=== PATIENT | male | born 1955 | race Caucasian/White ===

== ENCOUNTER → 2017-06-08 12:35 | Outpatient (CLI) | payer MEDICARE, SELFPAY ==
--- NOTE | 2017-06-08 12:37 | CT_ITS ---
STUDY: CTA OF THE BRAIN REASON FOR EXAM: Male, 61 years old. History of vertebral artery occlusion. RADIATION DOSAGE (If Supplied By Facility): CTDIvol = ( 27.85 ) mGy, DLP = ( 1548.04 ) mGycm TECHNIQUE: CT angiography was performed with a multi-detector CT scanner. Data acquisition was obtained from the skull base through the vertex following intravenous administration of 100 ml of Isovue-370. MIP images were reconstructed from the axial data set. Post-processing of the angiographic images was performed, with multiplanar reformation and 3D reconstruction. Individualized dose optimization techniques were used for this CT. COMPARISON: None. FINDINGS: Normal bilateral petrous carotid arteries. Normal right cavernous carotid artery with a normal supraclinoid bifurcation. Normal left cavernous carotid artery with a normal supraclinoid bifurcation. Normal right A1 segments of the anterior cerebral artery. Normal left A1 segments of the anterior cerebral artery. Normal intact anterior communicating artery (ACOM). Normal bilateral A2 segments of the anterior cerebral arteries. Normal right M1 and M2 segments of the middle cerebral arteries, with a normal M1 bifurcation. Normal left M1 and M2 segments of the middle cerebral arteries, with a normal M1 bifurcation. Normal right posterior communicating artery (PCOM). Normal left posterior communicating artery (PCOM). Normal bilateral vertebral arteries. Normal basilar artery with a normal basilar bifurcation. The visualized bilateral superior cerebellar (SCA) arteries are normal. Normal bilateral P1, P2 and visualized P3 segments of the posterior cerebral arteries. There is no demonstrated aneurysm of the saxman of [place]ter. There is no demonstrated abnormality of the visualized brain. Mucosal thickening of the posterior aspect of the right ethmoid sinus. CT/CTA Head W/WO Contrast IMPRESSION: Normal saxman of [place] without a demonstrated aneurysm or hemodynamically significant stenosis. Electronically Signed: Sony Perdomo MD at 13:37 EST Tel [phone], Service support ,
--- NOTE | 2017-06-08 12:37 | CT_ITS ---
STUDY: CTA NECK WITH CONTRAST REASON FOR EXAM: Male, 61 years old. History of vertebral artery occlusion. RADIATION DOSAGE (If Supplied By Facility): CTDIvol = ( 27 ) mGy, DLP = ( 1548.04 ) mGycm TECHNIQUE: CT angiography with multi-detector data acquisition was performed from the aortic arch to the skull base following intravenous administration of 100ml ml of Isovue 370 contrast. MIP images were reconstructed from the axial data set. Post-processing of the angiographic images was performed, with multiplanar reformation and 3D reconstruction. Individualized dose optimization techniques were used for this CT. COMPARISON: None. FINDINGS: AORTIC ARCH: There is atherosclerotic calcific plaque formation of the aortic arch and great vessels arising from the aortic arch, without a hemodynamically significant stenosis. There is a normal origin of the brachiocephalic, left common carotid, and left subclavian arteries. RIGHT CAROTID ARTERIES: Normal right common carotid artery (CCA). Focal calcified plaque in the midportion of the right common carotid artery. There is mild atherosclerotic plaque formation of the origin of the right internal carotid artery with less than 50% cross sectional diameter stenosis. Normal visualized cervical portion of the right internal carotid artery. Normal origin of the right external carotid artery (ECA). LEFT CAROTID ARTERIES: Normal left common carotid artery (CCA). Normal left common carotid bulb. Normal origin of the left internal carotid (ICA) artery without a hemodynamically significant stenosis. Normal visualized cervical portion of the left internal carotid artery. Normal origin of the left external carotid artery (ECA). VERTEBRAL ARTERIES: Normal bilateral vertebral arteries. CT/CTA Neck W/WO Contrast IMPRESSION: Minimal atherosclerotic plaque at the origin of the right internal carotid artery without significant stenosis. Electronically Signed: Sony Perdomo MD at 13:51 EST Tel [phone], Service support ,
== END ==
PROVIDERS: Family Provider Family Medicine; PCP Family Medicine; Visit Provider Psychiatry & Neurology Neurology
DX: I65.09 Occlusion and stenosis of unspecified vertebral artery (principal)
CPT/HCPCS: 70496; 70498; Q9967

== ENCOUNTER 2022-10-17 09:48 | Emergency (ER) | payer MEDICARE, SELFPAY ==
[2022-10-17 09:50] VITALS: BP 168/90; PULSE 96; RESP 24; TEMP 36.4; O2SAT 100; BMI 17.0
[2022-10-17 09:51] VITALS: O2SAT 100
--- NOTE | 2022-10-17 10:13 | EKG12_ITS ---
Test Reason : SOB/CP Blood Pressure : / mmHG Vent. Rate : 095 BPM Atrial Rate : 095 BPM P-R Int : 096 ms QRS Dur : 072 ms QT Int : 356 ms P-R-T Axes : 085 082 060 degrees QTc Int : 447 ms Sinus rhythm with short [place] Otherwise normal ECG Confirmed by RANDY LYLES, SUSAN ([id number]), video effects editor BRIANNA FLORES ([id number]) on 10/19/2022 7:47:25 AM Referred By: MARY/CHANTEL Confirmed By:TARAH PADILLA MD
--- NOTE | 2022-10-17 10:14 | ED.VIS.DYS ---
HPI History of Present Illness Chief Complaint: Shortness of Breath Detail of Chief Complaint: Shortness of breath Informant: patient and family Narrative Narrative: Patient presents with shortness of breath that he has had since September. He had several visits to [facility]. Patient was admitted last week for the same complaint and sounds like from what he is describing had a CAT scan with IV contrast of his chest as well as an echocardiogram. Patient apparently was told he has emphysema. He has an appointment to see Dr. Otto tomorrow who is a software development analyst locally. Patient woke up this morning any complains of exertional dyspnea just walking to the bathroom felt very winded and short of breath and used his rescue inhaler. Patient feels like he cannot get a good full breath in. He feels like is not getting any air. He denies fever. He has had occasional cough. He does smoke cigars. He denies chest pain. Denies recent travel or surgery. At times bringing up some hill sputum. [facility] Medical History (Updated 10/17/22 @ 11:[address] 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 Cachexia Cervical osteoarthritis Cervical post-laminectomy syndrome Cervical radiculopathy, chronic Chronic back pain COPD exacerbation COPD with chronic bronchitis and emphysema DDD (degenerative disc disease) Low back pain Neck pain Pain management Rib pain on right side SOB (shortness of breath) on exertion Somatic dysfunction of cervical region Somatic dysfunction of lumbar region Somatic dysfunction of pelvic region Somatic dysfunction of rib region Somatic dysfunction of sacral region Somatic dysfunction of thoracic region Home Medications albuterol sulfate 90 mcg/actuation breath activated powder inhaler 2 inh inhalation .Q4-6 PRN 10/15/22 [History Last Taken Unknown] budesonide-formoterol HFA 80 mcg-4.5 mcg/actuation aerosol inhaler (Symbicort) 2 puff inhalation BID 10/15/22 [History Last Taken Unknown] cyclobenzaprine 10 mg tablet 10 mg PO TID PRN 10/15/22 [History Last Taken Unknown] prednisone 10 mg tablet 10 mg PO DIRECTED 10/15/22 [History Last Taken Unknown] lorazepam 1 mg tablet (Ativan) 1 mg PO TID PRN anxiety #10 tabs 10/17/22 [Rx Last Taken Unknown] Allergy/AdvReac Type Severity Reaction Status Date / Time No Known Allergies Allergy Verified 10/17/22 09:48 Family History (Updated 10/15/22 @ 12:04 by Lynda Johnson) Mother Diabetes Hypertension Surgical History History of back surgery Social History (Updated 10/15/22 @ 12:13 by Lynda Johnson) household members: spouse Smoking Status: Former smoker how long ago did patient quit smoking: quit more then 30 days ago entered on 10-11-22. alcohol intake: current alcohol intake frequency: a few times a week Alcohol type: beer and wine substance use type: does not use caffeine: Yes (5 servings a day) ROS ROS ED Review of Systems ROS Unobtainable: other Constitutional Constitutional ED: Reports lethargy; Denies chills, fever(s), sweats or weight loss Eyes Eyes: Denies blurry vision, change in vision or diplopia ENT ENT ED: Denies rhinorrhea or sore throat Cardiovascular Cardiovascular: Denies chest pain, orthopnea or racing heartbeat Respiratory/Chest Respiratory/Chest: Reports dyspnea and dyspnea on exertion; Denies cough, orthopnea or sputum Gastrointestinal Gastrointestinal: Denies abdominal pain, diarrhea, nausea or vomiting Genitourinary Genitourinary ED: Denies dysuria, hematuria or urinary frequency Musculoskeletal Musculoskeletal: Denies arthralgias, back pain, myalgias or neck pain Integumentary Denies abscess, Abrasions or rash Neurologic Neurologic: Denies headache(s) or weakness Psychiatric Psychiatric: Denies anxiety, depression or suicidal thoughts Endocrine Endocrinology: Denies polydipsia, polyphagia or polyuria Hematologic/Lymphatic Hematologic/Lymphatic: Denies easy bleeding, easy bruising or lymphadenopathy Allergic/Immunologic Allergic/Immunologic ED: Denies mouth swelling, tongue swelling or urticaria EXAM Physical Exam Const Vital Signs: 10/17/22 09:50 10/17/22 09:51 10/17/22 10:24 Temperature 97.6 F L Temperature Source Temporal Pulse Rate 96 100 Respiratory Rate 24 H 30 H Respiratory Effort Short of Breath Respiratory Depth Shallow Respiratory Pattern Tachypnea Blood Pressure 168/90 H Blood Pressure Mean 116 Pulse Ox 100 Oxygen Delivery Method Room Air Room Air Positive well nourished and well developed General Appearance ED: well developed and NAD HEENT Reports TM's clear and moist mucous membranes normocephalic and atraumatic; Negative for trauma or tenderness Tympanic Membrane ED: Yes TM's clear Eyes PERRL and EOMs intact bilaterally General Eye ED: Negative for pale conjunctiva or scleral icterus Neck no lymphadenopathy, supple and no JVD General: Negative for tenderness Chest Wall inspection of chest normal and palpation of chest normal Chest: Negative for tenderness Resp normal respiratory effort Resp Narrative: Patient with slightly diminished breath sounds bilaterally. He has some very faint expiratory wheezes. Mild tachypnea. No accessory muscle use or retractions. He has no conversational dyspnea as he has rapid and pressured speech. Effort and Inspection: Negative for respiratory distress or pain with movement Auscultation: wheezes; Negative for rhonchi or diminished lung sounds Cardio regular rate, regular rhythm, S1 normal heart sound, S2 normal heart sound and no murmurs Peripheral Pulses: pulses 2+ throughout GI normal to inspection, nondistended, normoactive bowel sounds, soft to palpation, non-tender, non-distended and no masses Back/Spine no CVA tenderness and no thoracic nor lumbar tenderness Extremity normal to inspection General Extremety ED: Negative for edema General Extremity: Negative for edema Neuro oriented x3, CN's II-XII intact bilaterally, no sensory deficits noted and gait normal Sensorium / Orientation: awake, alert, oriented to person, oriented to place and oriented to time Motor Exam: strength 5/5 throughout and strength abnormal Psych mental status grossly normal Skin no rashes or lesions noted and no wounds MDM MDM MDM Narrative Medical decision making narrative: Patient presents with dyspnea for over a month. He has had multiple visits for this. He had significant work-up at [facility] and I will attempt to retrieve those results from prior visit. Patient will have an IV line established. He will be given a DuoNeb aerosol. EKG obtained showed a sinus rhythm with a rate of of 95 bpm with no acute ST segment changes. Patient was given a DuoNeb aerosol which really did not seem to help him very much. He agreed to take a milligram of Ativan which we gave him and he did feel markedly improved after. CBC with differential showed an elevated white count of 16.4 which I attribute to patient being on prednisone currently. Chemistries are unremarkable. Troponin was normal at 15 and BNP was normal at 68.8. Chest x-ray was unremarkable other than COPD changes. Patient's heart score is a 2 and feel he is low risk for acute coronary syndrome. He has not had chest pain. I suspect his symptoms are COPD related and likely anxiety related. Patient has an appointment with software development analyst tomorrow. I feel he can be discharged to home. I will write him a prescription for as needed Ativan. We attempted to get medical records from [facility] unsuccessfully as they do not have medical records there today. Lab Data Attestation: I reviewed the patient's lab results. Labs: Laboratory Results - last 24 hr 10/17/22 10/17/22 10/17/22 10:20 10:20 10:20 WBC 16.4 H RBC 4.28 L Hgb 13.2 Hct 41.1 MCV 96.0 H MCH 30.8 MCHC 32.1 RDW Std Deviation 53.5 H RDW Coeff of Antonia 15.1 H Plt Count 336 MPV 9.7 Immature Gran % (Auto) 2.400 H Neut % (Auto) 77.0 H Lymph % (Auto) 10.4 L Bent % (Auto) 8.6 Eos % (Auto) 0.9 Baso % (Auto) 0.7 Absolute Neuts (auto) 12.6 H Absolute Lymphs (auto) 1.70 Nucleated RBC % 0 Sodium 141 Potassium 3.6 Chloride 102 Carbon Dioxide 32.0 Anion Gap 7 BUN 24 H Creatinine 1.04 Estim Creat Clear Calc 54.74 Est GFR (MDRD) Af Amer 92 Est GFR (MDRD) Non-Af 76 BUN/Creatinine Ratio 23.1 H Glucose 136 H Calcium 9.0 Troponin I High Sens 15 B-Natriuretic Peptide 68.8 Radiography Chest X-Ray - ED: 1 View Diagnostic Testing: Clinical Impression(s) from Imaging Studies Chest X-Ray 10/17/22 10:59 IMPRESSION: COPD/emphysema Electronically Signed: Robert Stern MD at 11:37 EDT , 1 view chest x-ray obtained interpreted by myself as hyperinflation and COPD. No evidence of infiltrate or pneumothorax. Radiology in agreement. EKG Initial EKG: Attestation: I personally reviewed and interpreted this EKG as follows: Comments: Sinus rhythm with a ventricular rate of 95 bpm with no acute ST segment changes. Discharge Plan Triage Chief Complaint: Shortness of Breath ED Provider: Thomas Clark Dx/Rx/DC Orders Clinical Impression: Acute dyspnea, Anxiety Instructions: ED Anxiety Reaction, ED Dyspnea Prescriptions: New lorazepam [Ativan] 1 mg tablet 1 mg PO TID PRN (Reason: anxiety) Qty: 10 0RF No Action prednisone 10 mg tablet 10 mg PO DIRECTED Label Comments: started date 10-13-22 stop date 10-20-22. Rx Instructions: see taper instructions budesonide-formoterol [Symbicort] 80-4.5 mcg/actuation HFA aerosol inhaler 2 puff inhalation BID albuterol sulfate 90 mcg/actuation aerosol powdr breath activated 2 inh inhalation .Q4-6 PRN cyclobenzaprine 10 mg tablet 10 mg PO TID PRN Primary Care Provider: Care Physician,No Primary Referrals: Care Physician,No Primary [Primary Care Provider] - Activity Restrictions/Additional Instructions: Keep your appointment with software development analyst tomorrow. Disposition Disposition: Home, Self Care
[2022-10-17] MEDS: Ipratropium/Albuterol Sulfate 3 ML AMPUL.NEB INHALATION (10:23)
[2022-10-17 10:24] VITALS: PULSE 100; RESP 30
[2022-10-17 10:33] LABS: Absolute Neutrophil Count 12.6 X10^3/uL (2.0-7.7); Basophil# 0.11 X10^3/uL; Basophil% 0.7 % (0-1); Eosinophil# 0.14 X10^3/uL; Eosinophils% 0.9 % (0-5); Hematocrit 41.1 % (40-54); Hemoglobin 13.2 g/dL (13.0-16.5); Lymphocyte % 10.4 % (19-41); Mean Corp Hgb Conc 32.1 g/dL (32-36); Mean Corpuscular Hgb 30.8 pg (27.0-32.0); Mean Platelet Vol. 9.7 fl (6.2-12.0); Monocyte% 8.6 % (0-10); NRBC Flagged by Analyzer 0 % (0-5); Neutrophil # 12.63 X10^3/uL (2.7-7.7); Platelet Count 336 K/mm3 (150-450); RBC Distribution Width CV 15.1 % (11.6-14.6); RBC Distribution Width SD 53.5 fl (35.1-43.9); Red Blood Count 4.28 M/mm3 (4.6-6.2); White Blood Count 16.4 K/mm3 (4.4-11.0)
[2022-10-17] MEDS: LORazepam 2 MG/ML Syringe 1 MG IV (10:45)
[2022-10-17 10:50] LABS: Anion Gap 7 (5-15); BUN 24 mg/dL (7-18); BUN/Creat Ratio 23.1 RATIO (10-20); Chloride 102 mmol/L (98-107); Creatinine, Serum 1.04 mg/dL (0.70-1.30); EST Glomerular Filtration Rate 76 mL/min (>60); Est Glom Filt Rate - Afr Amer 92 mL/min (>60); Estimated Creatinine Clearance 54.74 ml/min; Glucose 136 mg/dL (74-106); Potassium 3.6 mmol/L (3.5-5.1); Sodium Level 141 mmol/L (136-145); Troponin-I HS 15 pg/mL (3.0-78.0)
[2022-10-17 10:51] LABS: BNP,B-Type NATRIURETIC PEPTIDE 68.8 pg/mL (0-100)
--- NOTE | 2022-10-17 10:59 | RAD_ITS ---
STUDY: X-RAY CHEST REASON FOR EXAM: Male, 66 years old. dyspnea TECHNIQUE: To AP portable view of the chest. COMPARISON: None. FINDINGS: No visualized consolidation or infiltrates. There is hyperinflation of the lungs consistent with chronic obstructive lung disease (COPD). Moderate emphysematous changes are present. There is no demonstrated pleural abnormality. Normal size heart. Normal mediastinum and ivy. Normal visualized pulmonary arteries. There is atherosclerotic calcification of the aortic arch with tortuosity. There are diffuse degenerative changes of the visualized thoracic spine. Normal visualized ribs, clavicles, and shoulders. There is no demonstrated abnormality of the visualized soft tissue structures of the upper abdomen. RAD/Chest 1 View (Portable) IMPRESSION: COPD/emphysema Electronically Signed: Robert Stern MD at 11:37 EDT ,
[2022-10-17 11:48] VITALS: BP 141/78; PULSE 78; RESP 16; O2SAT 99
[2022-10-17 12:31] VITALS: BP 153/73; PULSE 91; RESP 16; TEMP 36.6; O2SAT 97
== END 2022-10-17 12:32 | disposition home or self-care (01) ==
PROVIDERS: Emergency Provider Emergency Medicine; Visit Provider Emergency Medicine
DX: R06.02 Shortness of breath (principal); J43.9 Emphysema, unspecified; F41.9 Anxiety disorder, unspecified; Z79.52 Long term (current) use of systemic steroids; Z87.891 Personal history of nicotine dependence
CPT/HCPCS: 71045; 80048; 83880; 84484; 85025; 93005; 94640; 96374; 99284; A4216

== ENCOUNTER 2022-11-13 12:13 | Emergency (ER) | payer MEDICARE, SELFPAY ==
[2022-11-13 12:14] VITALS: BP 152/83; PULSE 105; RESP 25; TEMP 36.6; O2SAT 90
[2022-11-13 12:31] VITALS: PULSE 87; O2SAT 98
[2022-11-13 12:37] VITALS: BMI 18.4
--- NOTE | 2022-11-13 12:40 | EKG12_ITS ---
Test Reason : SOB Blood Pressure : / mmHG Vent. Rate : 082 BPM Atrial Rate : 082 BPM P-R Int : 106 ms QRS Dur : 070 ms QT Int : 378 ms P-R-T Axes : 079 081 084 degrees QTc Int : 441 ms Sinus rhythm with short [place] with Premature supraventricular complexes Otherwise normal ECG Confirmed by RANDY LYLES, SUSAN ([id number]), research editor BRIANNA FLORES ([id number]) on 11/15/2022 11:06:25 A M Referred By: Confirmed By:TARAH PADILLA MD
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
[2022-11-13] MEDS: Ipratropium/Albuterol Sulfate 3 ML AMPUL.NEB INHALATION (12:49)
[2022-11-13] MEDS: Albuterol 2.5 MG/3 ML VIAL.NEB. INHALATION (12:49)
[2022-11-13 12:55] VITALS: PULSE 84; RESP 18
--- NOTE | 2022-11-13 13:05 | RAD_ITS ---
STUDY: X-RAY CHEST REASON FOR EXAM: Male, 66 years old. SOB TECHNIQUE: PA and lateral views of the chest. COMPARISON: 10/17/2022 FINDINGS: EKG leads overlie the chest Lungs are hyperexpanded with chronic interstitial changes, no superimposed acute pulmonary process. Normal size heart. Normal mediastinum and ivy. Normal visualized pulmonary arteries. There is atherosclerotic calcification of the aortic arch with tortuosity. There are diffuse degenerative changes of the visualized thoracic spine. Normal visualized ribs, clavicles, and shoulders. There is no demonstrated abnormality of the visualized soft tissue structures of the upper abdomen. RAD/Chest PA and Lateral IMPRESSION: Hyperexpanded lungs with chronic interstitial changes, no superimposed acute pulmonary process Electronically Signed: Jack Dave MD at 13:48 EDT ,
[2022-11-13 13:10] LABS: Absolute Lymphocyte Count 1.33 X10^3/uL (0.83-4.51); Basophil# 0.03 X10^3/uL; Basophil% 0.2 % (0-1); Eosinophils% 1.6 % (0-5); Hemoglobin 12.2 g/dL (13.0-16.5); Lymphocyte # 1.33 X10^3/ul (0.83-4.51); Lymphocyte % 10.6 % (19-41); Mean Corp Hgb Conc 33.9 g/dL (32-36); Mean Corpuscular Hgb 31.9 pg (27.0-32.0); Mean Corpuscular Volume 94.2 fL (80-94); Mean Platelet Vol. 9.2 fl (6.2-12.0); Monocyte# 0.87 X10^3/uL; Monocyte% 6.9 % (0-10); NRBC Flagged by Analyzer 0 % (0-5); Neutrophil # 10.01 X10^3/uL (2.7-7.7); Neutrophil % 79.7 % (47-70); Platelet Count 222 K/mm3 (150-450); RBC Distribution Width CV 15.5 % (11.6-14.6); RBC Distribution Width SD 53.5 fl (35.1-43.9); Red Blood Count 3.82 M/mm3 (4.6-6.2); White Blood Count 12.6 K/mm3 (4.4-11.0)
[2022-11-13] MEDS: MethylPREDNISolone 125 MG/2 ML Vial IV (13:17)
[2022-11-13 13:24] LABS: BNP,B-Type NATRIURETIC PEPTIDE 54.2 pg/mL (0-100)
[2022-11-13 13:32] LABS: Anion Gap 4 (5-15); BUN 19 mg/dL (7-18); BUN/Creat Ratio 19.8 RATIO (10-20); Calcium,Total 8.7 mg/dL (8.5-10.1); Chloride 103 mmol/L (98-107); Creatinine, Serum 0.96 mg/dL (0.70-1.30); EST Glomerular Filtration Rate 84 mL/min (>60); Est Glom Filt Rate - Afr Amer 101 mL/min (>60); Estimated Creatinine Clearance 64.09 ml/min; Glucose 120 mg/dL (74-106); Potassium 3.6 mmol/L (3.5-5.1); Sodium Level 138 mmol/L (136-145); Troponin-I HS 14 pg/mL (3.0-78.0)
[2022-11-13 14:13] VITALS: BP 134/83; PULSE 86; RESP 13; O2SAT 96
[2022-11-13 14:34] VITALS: O2SAT 97
[2022-11-13 15:30] VITALS: BP 131/80; PULSE 84; RESP 16; O2SAT 97
== END 2022-11-13 15:30 | disposition home or self-care (01) ==
PROVIDERS: Emergency Provider Emergency Medicine; PCP Family Medicine; Visit Provider Emergency Medicine
DX: J44.1 Chronic obstructive pulmonary disease with (acute) exacerbation (principal); F41.9 Anxiety disorder, unspecified; Z87.891 Personal history of nicotine dependence; D64.9 Anemia, unspecified; Z79.52 Long term (current) use of systemic steroids
CPT/HCPCS: 71046; 80048; 83880; 84484; 85025; 93005; 94640; 96374; 99285; A4216

== ENCOUNTER → 2022-11-18 | Outpatient (CLI) | payer MEDICARE, SELFPAY ==
[2022-11-18 12:33] VITALS: PULSE 100; PULSE 102; PULSE 106; PULSE 107; PULSE 109; PULSE 110; O2SAT 93; O2SAT 94; O2SAT 95; O2SAT 97; O2SAT 98
--- NOTE | 2022-11-19 09:41 | PCM.PSN.6M ---
PSN 6 Minute Walk Test 6 Minute Walk Test 6 Minute Walk Test: 6 Minute Walk Test PSN:6-Minute Walk Test Start: 11/18/22 12:33 Freq: Status: Active Protocol: [id number] Document 11/18/22 12:33 [facility] (Rec: 11/18/22 12:36 [facility] [id number]) 6 Minute Walk Test Date Performed 11/18/22 Time Performed 11:15 Height 5 ft 10 in Weight: 126 lb Weight in Pounds 126.[address]: Cam Otto Assistive device used: None Pre-test Oxygen Delivery Method Room Air Pulse Ox 98 Pulse Rate (60-100) 102 H Dyspnea David Scale (0-10) 3 Reported Symptoms Increased Work of Breathing 1st minute Oxygen Delivery Method Room Air Pulse Ox 95 Pulse Rate (60-100) 106 H Dyspnea David Scale (0-10) 4 Number of Rests Taken 1 Reported Symptoms Increased Work of Breathing 2nd minute Oxygen Delivery Method Room Air Pulse Ox 94 Pulse Rate (60-100) 109 H Dyspnea David Scale (0-10) 4 Number of Rests Taken 1 Reported Symptoms Increased Work of Breathing 3rd minute Oxygen Delivery Method Room Air Pulse Ox 94 Pulse Rate (60-100) 109 H Dyspnea David Scale (0-10) 4 Number of Rests Taken 1 Reported Symptoms Increased Work of Breathing 4th minute Oxygen Delivery Method Room Air Pulse Ox 94 Pulse Rate (60-100) 109 H Dyspnea David Scale (0-10) 4 Number of Rests Taken 1 Reported Symptoms Increased Work of Breathing 5th minute Oxygen Delivery Method Room Air Pulse Ox 93 Pulse Rate (60-100) 110 H Dyspnea David Scale (0-10) 4 Number of Rests Taken 1 Reported Symptoms Increased Work of Breathing 6th minute Oxygen Delivery Method Room Air Pulse Ox 94 Pulse Rate (60-100) 107 H Dyspnea David Scale (0-10) 4 Number of Rests Taken 0 Reported Symptoms Increased Work of Breathing Post-test Oxygen Delivery Method Room Air Pulse Ox 97 Pulse Rate (60-100) 100 Dyspnea David Scale (0-10) 3 Reported Symptoms Increased Work of Breathing Full Laps Walked 5 Partial Lap, Number of Tiles Walked 38 Total Distance Walked (ft) 333 Interpretation Interpretation: The patient ambulated 333 feet over the course of 6 minutes beginning on room air without assistive devices. Pretesting oxygen saturation was noted to be 98% on room air. With ambulation, the dario oxygen saturation was 93%. There was evidence of both impaired walk distance and significant exertional oxygen desaturation. Recommendations Recommendations: There is no indication for the use of supplemental oxygen at this time. However, close interval follow-up was recommended, given the degree of oxygen desaturation noted during this study.
== END | disposition home or self-care (01) ==
LOC: PSN 11:19
PROVIDERS: PCP Family Medicine; Referring Provider Internal Medicine Critical Care Medicine; Visit Provider Internal Medicine Critical Care Medicine
DX: J44.9 Chronic obstructive pulmonary disease, unspecified (principal); F17.210 Nicotine dependence, cigarettes, uncomplicated
CPT/HCPCS: 94618

== ENCOUNTER 2022-11-23 08:18 | Emergency (ER) | payer MEDICARE, SELFPAY ==
[2022-11-23 08:19] VITALS: BP 146/81; PULSE 90; RESP 20; TEMP 36.6; O2SAT 100
--- NOTE | 2022-11-23 08:46 | ED.VIS.DYS ---
HPI History of Present Illness Chief Complaint: Shortness of Breath Narrative Narrative: 66-year-old male past medical history of emphysema presents with his with increasing shortness of breath. He states its been a month and a half that he has had increasing shortness of breath. He also has dyspnea on exertion. He has an occasional cough that was productive, but denies any fevers or chills. No nausea or vomiting. He states early this morning he began having increasing shortness of breath. They state that they went to an outside facility, were registered and talk to the doctor, and were discharged because they state that he would be better off being seen at a facility with a office communication professor. Patient states that he was diagnosed with emphysema and quit smoking a few months ago. He and his state they came directly here for evaluation of his shortness of breath that has been ongoing. 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 Cachexia Cervical osteoarthritis Cervical post-laminectomy syndrome Cervical radiculopathy, chronic Chronic back pain COPD exacerbation COPD with chronic bronchitis and emphysema DDD (degenerative disc disease) Low back pain Neck pain Pain management Rib pain on right side SOB (shortness of breath) on exertion Somatic dysfunction of cervical region Somatic dysfunction of lumbar region Somatic dysfunction of pelvic region Somatic dysfunction of rib region Somatic dysfunction of sacral region Somatic dysfunction of thoracic region Home Medications albuterol sulfate 90 mcg/actuation breath activated powder inhaler 2 inh inhalation .Q4-6 PRN 10/15/22 [History Last Taken Unknown] budesonide-formoterol HFA 80 mcg-4.5 mcg/actuation aerosol inhaler (Symbicort) 2 puff inhalation BID 10/15/22 [History Last Taken Unknown] cyclobenzaprine 10 mg tablet 10 mg PO TID PRN 10/15/22 [History Last Taken Unknown] prednisone 10 mg tablet 10 mg PO DIRECTED 10/15/22 [History Last Taken Unknown] lorazepam 1 mg tablet (Ativan) 1 mg PO TID PRN anxiety #10 tabs 10/17/22 [Rx Last Taken Unknown] prednisone 10 mg tablet 10 mg PO DAILY #30 tabs 10/18/22 [Rx Last Taken Unknown] ipratropium bromide 0.02 % solution for inhalation 2.5 ml inhalation Q6H PRN shortness of breath or wheezing #75 mL 11/13/22 [Rx Last Taken Unknown] lorazepam 1 mg tablet (Ativan) 1 mg PO TID PRN anxiety #9 tabs 11/13/22 [Rx Last Taken Unknown] prednisone 20 mg tablet 60 mg (3 x 20 mg) PO DAILY #15 TABLETS 11/13/22 [Rx Last Taken Unknown] Allergy/AdvReac Type Severity Reaction Status Date / Time No Known Allergies Allergy Verified 11/23/22 08:22 Family History Mother Diabetes Hypertension Surgical History History of back surgery Social History household members: spouse Smoking Status: Former smoker how long ago did patient quit smoking: quit more then 30 days ago entered on 10-11-22. alcohol intake: current alcohol intake frequency: a few times a week Alcohol type: beer and wine substance use type: does not use caffeine: Yes (5 servings a day) ROS ROS ED ROS Narrative Constitutional: No fever, no chills. HEENT: No sore throat. No neck pain. No loss of vision. No rhinorrhea. Cardiovascular: No chest pain. No palpitations. No pedal edema. Respiratory: Occasional cough, positive dyspnea on exertion and increasing shortness of breath. Abdominal: No abdominal pain. No nausea. No vomiting. Genitourinary: No dysuria. No hematuria. Musculoskeletal: No myalgias. No arthralgias. Neurologic: No headaches. No dizziness. No lightheadedness. Skin: No rash. No change in color. Psychiatric: No depression. No anxiety. EXAM Physical Exam Narrative Exam Narrative: Afebrile. Vital signs noted. Mild cachexia HEENT: Normocephalic. Atraumatic. PERRL, EOMI. Neck soft and supple. No point tenderness or step off. Cardiovascular: Regular rate and rhythm. No murmurs, rubs, or gallops appreciated. Respiratory: No tachypnea. Diminished breath sounds bilaterally. Speaking in full sentences. Gastrointestinal: Abdomen soft, nontender, with normoactive bowel sounds. No rebound or guarding. Neurological: Awake. Alert. Nonfocal, nonlateralizing. Skin: No rash. Normal color. No pallor. Musculoskeletal: No pedal edema. Full range of motion extremities. Const Vital Signs: 11/23/22 08:19 11/23/22 08:47 11/23/22 09:08 Temperature 98 F Temperature Source Temporal Pulse Rate 90 84 Respiratory Rate 20 H 23 H Respiratory Effort Short of Breath Respiratory Depth Normal Respiratory Pattern Normal Blood Pressure 146/81 H Blood Pressure Mean 102 Pulse Ox 100 Oxygen Delivery Method Room Air Room Air 11/23/22 09:09 Temperature Temperature Source Pulse Rate Respiratory Rate Respiratory Effort Respiratory Depth Respiratory Pattern Blood Pressure Blood Pressure Mean Pulse Ox Oxygen Delivery Method Room Air MDM MDM MDM Narrative Medical decision making narrative: Although his pulse ox is 100% on room air, concern would be for COPD exacerbation. Also in the differential diagnosis is congestive heart failure, but he shows no clinical signs of fluid overload. He will be given DuoNeb aerosolized treatment and oral prednisone 60 mg orally. Comprehensive work-up was pursued. I do feel chest x-ray is indicated to help rule out pneumonia. By the RN that he refused his prednisone because he has pulmonary function test coming up on December 09. According to respiratory, he could take steroids today and tomorrow but none within 2 weeks of his pulmonary function tests. He declined taking them at either time, so prescription will not be written. Upon repeat examination, at approximately 0 940, he is eating a [employer] breakfast sandwich and not having any difficulty breathing. I reviewed his laboratory work, he has a normal white count of 9.7, hemoglobin slightly low at 12.5, but not enough anemia to cause shortness of breath. I do not feel he requires a blood transfusion. Review of his electrolyte panel shows glucose appropriately elevated at 109, normal sodium of 138 normal potassium of 3.5, BUN slightly elevated at 20 with normal creatinine of 0.9. I interpreted his chest x-ray independently and see evidence of COPD and emphysema but no evidence of an infiltrate. I do not feel an antibiotic is indicated. At this point in time, as he has a normal pulse ox, I do feel that he is having more of a COPD flare for the last month and a half. I feel he can be discharged safely home to follow-up with pulmonology. He will continue his aerosols and uses MDIs. I do not feel he requires observation or admission at this time. Return instructions to the emergency department were reviewed. Disposition is discharged home in stable condition. History & Record Review Discussion w/independent historian: Patient and Family Additional record(s) reviewed:: Prior outpatient record, Prior ED visit and Prior labs Lab Data Labs: Laboratory Results - last 24 hr 11/23/22 08:44 WBC 9.7 RBC 4.08 L Hgb 12.5 L Hct 39.2 L MCV 96.1 H MCH 30.6 MCHC 31.9 L RDW Std Deviation 52.7 H RDW Coeff of Antonia 14.9 H Plt Count 226 MPV 9.3 Immature Gran % (Auto) 0.700 Neut % (Auto) 82.3 H Lymph % (Auto) 7.5 L [place] % (Auto) 7.6 Eos % (Auto) 1.6 Baso % (Auto) 0.3 Absolute Neuts (auto) 8.0 H Absolute Lymphs (auto) 0.73 L Nucleated RBC % 0 Sodium 138 Potassium 3.5 Chloride 105 Carbon Dioxide 28.0 Anion Gap 5 BUN 20 H Creatinine 0.94 Est GFR (MDRD) Af Amer 104 Est GFR (MDRD) Non-Af 86 BUN/Creatinine Ratio 21.3 H Glucose 109 H Calcium 8.8 Radiography Diagnostic Testing: Clinical Impression(s) from Imaging Studies Chest X-Ray 11/23/22 08:54 IMPRESSION: Stable hyperexpansion, consistent with COPD. No acute pneumonic infiltrate or CHF. Electronically Signed: Jack Roche MD at 9:12 EDT Reading Location ID and State: [facility] / Unknown , Service support , Discharge Plan Triage Chief Complaint: Shortness of Breath ED Provider: Pravin Coronel Dx/Rx/DC Orders Clinical Impression: Dyspnea on exertion, COPD with chronic bronchitis and emphysema Instructions: ED COPD Flare Prescriptions: No Action prednisone 10 mg tablet 10 mg PO DIRECTED Patient Comments: started date 10-13-22 stop date 10-20-22. Rx Instructions: see taper instructions budesonide-formoterol [Symbicort] 80-4.5 mcg/actuation HFA aerosol inhaler 2 puff inhalation BID albuterol sulfate 90 mcg/actuation aerosol powdr breath activated 2 inh inhalation .Q4-6 PRN cyclobenzaprine 10 mg tablet 10 mg PO TID PRN prednisone 10 mg tablet 10 mg PO DAILY Qty: 30 0RF Rx Instructions: Take 4 tabs PO daily for 3 days, then 3 tabs daily for 3 days, then 2 tabs daily for 3 days, then 1 tab daily for 3 days lorazepam [Ativan] 1 mg tablet 1 mg PO TID PRN (Reason: anxiety) Qty: 10 0RF prednisone 20 mg tablet 60 mg PO DAILY Qty: 15 0RF lorazepam [Ativan] 1 mg tablet 1 mg PO TID PRN (Reason: anxiety) Qty: 9 0RF ipratropium bromide 0.02 % solution 2.5 ml inhalation Q6H PRN (Reason: shortness of breath or wheezing) Qty: 75 0RF Primary Care Provider: Ton Nix Referrals: Cam Otto MD [Med Staff - Active Staff] - Ton Nix DO [Primary Care Provider] - Disposition Disposition: Home, Self Care
[2022-11-23 08:47] VITALS: O2SAT 98
--- NOTE | 2022-11-23 08:54 | RAD_ITS ---
INDICATION: Shortness of Breath EXAMINATION/TECHNIQUE: X-RAY - AP portable upright XR Chest 1 View on 2 images COMPARISON: Frontal and lateral chest x-ray November 13, 2022 FINDINGS: LINES/DEVICES: None. LUNGS: The lungs again are hyperexpanded, with emphysematous changes most prominent at the apices. Some prominence of the peripheral interstitial markings at the lung bases could reflect crowding or chronic change. No acute consolidating infiltrate or mass. Small nipple shadows project over the lateral aspect of each midlung. No edema or effusion. No pneumothorax. MEDIASTINUM AND CARDIOVASCULAR STRUCTURES: Cardiac silhouette not enlarged. Central airways and mediastinal contour are unremarkable. There is stable calcification in the thoracic aortic arch. BONES AND SOFT TISSUES: Unremarkable. RAD/Chest 1 View (Portable) IMPRESSION: Stable hyperexpansion, consistent with COPD. No acute pneumonic infiltrate or CHF. Electronically Signed: Jack Roche MD at 9:12 EDT Reading Location ID and State: [id number] / Unknown , Service support ,
[2022-11-23 08:55] LABS: Absolute Lymphocyte Count 0.73 X10^3/uL (0.83-4.51); Basophil# 0.03 X10^3/uL; Basophil% 0.3 % (0-1); Eosinophil# 0.16 X10^3/uL; Eosinophils% 1.6 % (0-5); Hematocrit 39.2 % (40-54); Hemoglobin 12.5 g/dL (13.0-16.5); Lymphocyte # 0.73 X10^3/ul (0.83-4.51); Lymphocyte % 7.5 % (19-41); Mean Corp Hgb Conc 31.9 g/dL (32-36); Mean Corpuscular Hgb 30.6 pg (27.0-32.0); Mean Corpuscular Volume 96.1 fL (80-94); Mean Platelet Vol. 9.3 fl (6.2-12.0); Monocyte# 0.74 X10^3/uL; Monocyte% 7.6 % (0-10); NRBC Flagged by Analyzer 0 % (0-5); Neutrophil # 7.98 X10^3/uL (2.7-7.7); Neutrophil % 82.3 % (47-70); Platelet Count 226 K/mm3 (150-450); RBC Distribution Width CV 14.9 % (11.6-14.6); RBC Distribution Width SD 52.7 fl (35.1-43.9); Red Blood Count 4.08 M/mm3 (4.6-6.2); White Blood Count 9.7 K/mm3 (4.4-11.0)
[2022-11-23] MEDS: Ipratropium/Albuterol Sulfate 3 ML AMPUL.NEB INHALATION (08:58)
[2022-11-23] MEDS: predniSONE 20 MG Tablet 60 MG PO (08:58)
[2022-11-23 09:08] VITALS: PULSE 84; RESP 23
[2022-11-23 09:10] LABS: Anion Gap 5 (5-15); BUN 20 mg/dL (7-18); BUN/Creat Ratio 21.3 RATIO (10-20); Calcium,Total 8.8 mg/dL (8.5-10.1); Chloride 105 mmol/L (98-107); Creatinine, Serum 0.94 mg/dL (0.70-1.30); EST Glomerular Filtration Rate 86 mL/min (>60); Est Glom Filt Rate - Afr Amer 104 mL/min (>60); Glucose 109 mg/dL (74-106); Potassium 3.5 mmol/L (3.5-5.1); Sodium Level 138 mmol/L (136-145)
[2022-11-23 09:40] VITALS: BP 142/76; PULSE 64; RESP 14; TEMP 36.6; O2SAT 99
[2022-11-23 09:59] VITALS: BMI 17.0
== END 2022-11-23 10:00 | disposition home or self-care (01) ==
PROVIDERS: Emergency Provider Emergency Medicine; PCP Family Medicine; Visit Provider Emergency Medicine
DX: R06.09 Other forms of dyspnea (principal); J43.9 Emphysema, unspecified; J42 Unspecified chronic bronchitis; Z87.891 Personal history of nicotine dependence; Z79.52 Long term (current) use of systemic steroids
CPT/HCPCS: 71045; 80048; 85025; 93005; 94640; 99285; A4216

== ENCOUNTER → 2022-12-09 | Outpatient (CLI) | payer MEDICARE, SELFPAY ==
--- NOTE | 2022-12-10 05:59 | PFTCOMP ---
COMPLETE PULMONARY FUNCTION TEST INTERPRETATION Brief HPI: Patient is a 66-year-old male, currently under the care of myself, who presents to [facility] for complete pulmonary function tests secondary to diagnosis of COPD. Respiratory therapist reports good effort and reproducible results. Interpretation: Forced expiration spirometry shows a very severe large airways obstructive ventilatory defect with an FEV1 of 33% predicted. There is no significant bronchodilator response by strict ATS criteria. Spirograms are of good quality and plateau slowly, indicating slowly emptying areas of the lungs. The respiratory flow volume loop shows decreased expiratory flow rates at all lung volumes consistent with airway obstruction. Lung volumes by body plethysmography show an elevated total lung capacity at 8.72 L, 122% predicted. FRC and RV are elevated out of proportion. Lung volume measurements are consistent with hyperinflation and air-trapping. Diffusion capacity by carbon monoxide is decreased at 18% predicted. The airway resistance is elevated. No previous pulmonary function tests were available for review. Impression: Irreversible very severe large airways obstructive ventilatory defect with a symmetric reduction diffusion capacity, resulting in air trapping with hyperinflation
== END | disposition home or self-care (01) ==
LOC: PSN 12:19
PROVIDERS: PCP Family Medicine; Referring Provider Internal Medicine Critical Care Medicine; Visit Provider Internal Medicine Critical Care Medicine
DX: J44.9 Chronic obstructive pulmonary disease, unspecified (principal); F17.210 Nicotine dependence, cigarettes, uncomplicated
CPT/HCPCS: 94060; 94726; 94729

== ENCOUNTER → 2023-11-25 | Outpatient (CLI) | payer MEDICARE, SELFPAY ==
--- NOTE | 2023-11-25 13:25 | CT_ITS ---
STUDY: LOW DOSE CT LUNG CANCER SCREENING REASON FOR EXAM: Male, 67 years old. Smoker quit 10/07/22 RADIATION DOSAGE (If Supplied By Facility): CTDIvol = ( 2.01 ) mGy, DLP = ( 81.03 ) mGycm TECHNIQUE: No contrast was administered. Low dose technique was utilized (average mAS-38 and kVp 120). 1.25 mm axial source images with a slice interval of 1.25-mm were reconstructed in lung windows. 2.5 mm axial source images with a slice interval of 2.5-mm were reconstructed in lung windows. 5.0 mm axial source images with a slice interval of 5.0-mm were reconstructed in soft tissue windows. COMPARISON: Comparison is made with prior chest radiograph dated November 23, 2022. NODULES: There is a 2.1 cm x 2.3 cm spiculated heterogeneous density in the peripheral lateral aspect of the left upper lobe. This may represent an area of scarring although correlation with a PET scan is recommended for further evaluation. Adjacent to this, there is a 1.4 cm x 1.4 cm bulla. Emphysema: Hyperinflation. Diffuse emphysematous changes worse in the upper lobes. There is evidence of thickening of the right minor fissure suggestive of scarring. Endobronchial lesion: None Aorta: Atherosclerotic plaque formation. CORONARY ARTERIES: Coronary artery calcification is seen. Heart: Unremarkable Pulmonary artery: Unremarkable Mediastinal nodes: Small mediastinal lymph nodes. Other chest and abdominal findings: CT/Low Dose CT Lung Screening IMPRESSION: Lung-RADS category 4B - Chest CT with or without contrast, PET/CT and/or tissue sampling can be obtained depending on the probability of malignancy and comorbidities. IMPORTANT NOTES FOR USE: ACR Lung-RADS Version 1.1 Assessment Categories Release Date: 2018 Category: Coded 0-4 bases on nodule(s) with highest degree of suspicion. Negative screen is defined as categories 1 and 2; a positive screen is defined as categories 3 and 4. Category 3 and 4A nodules that are unchanged on interval CT should be coded as category 2, and individuals returned to screening in 12 months. Category 4X: Category 3 or 4 nodules with additional imaging findings that increase the suspicion of lung cancer, such as spiculation, GGN that doubles in size in 1 year, enlarged lymph notes, etc. Category Modifiers: S (significant finding unrelated to lung cancer) Electronically Signed: Sony Perdomo MD at 14:20 EDT ,
== END | disposition home or self-care (01) ==
LOC: CT 13:19
PROVIDERS: PCP Family Medicine; Referring Provider Nurse Practitioner Acute Care; Visit Provider Nurse Practitioner Acute Care
DX: F17.210 Nicotine dependence, cigarettes, uncomplicated (principal)
CPT/HCPCS: 71271

== ENCOUNTER 2023-11-27 21:32 | Emergency (ER) | payer MEDICARE, SELFPAY ==
[2023-11-27 21:33] VITALS: BP 86/72; PULSE 94; PULSE 98; RESP 11; TEMP -17.7; TEMP 0; O2SAT 86; O2SAT 88; O2SAT 95
[2023-11-27] MEDS: Lidocaine 2% 100 MG/5 ML Syringe IV BOLUS (21:33)
[2023-11-27] MEDS: Etomidate 20 MG/10 ML Vial IV (21:34)
[2023-11-27] MEDS: Succinylcholine Chloride 200 MG/10 ML SYRINGE 100 MG IV (21:35)
--- NOTE | 2023-11-27 21:41 | EKG12_ITS ---
Test Reason : UNRESPONSIVE Blood Pressure : / mmHG Vent. Rate : 092 BPM Atrial Rate : 092 BPM P-R Int : 114 ms QRS Dur : 072 ms QT Int : 362 ms P-R-T Axes : 083 084 088 degrees QTc Int : 447 ms Normal sinus rhythm Low voltage QRS Possible Lateral infarct (cited on or before 23-NOV-2022) Abnormal ECG When compared with ECG of 23-NOV-2022 08:50, Premature atrial complexes are no longer Present Nonspecific T wave abnormality now evident in Anterolateral leads Confirmed by AKI LYLES, AMBROCIO ([id number]), editorial director BRIANNA FLORES ([id number]) on 11/30/2023 1:28:53 PM Referred By: SHELIA Confirmed By:AMBROCIO PRABHAKAR MD
[2023-11-27 21:42] VITALS: BP 86/72; PULSE 93; RESP 18; TEMP 35.3; O2SAT 93
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
[2023-11-27 22:00] LABS: Absolute Lymphocyte Count 2.67 X10^3/uL (0.83-4.51); Absolute Neutrophil Count 6.6 X10^3/uL (2.0-7.7); Basophil# 0.03 X10^3/uL; Basophil% 0.3 % (0-1); Eosinophil# 0.08 X10^3/uL; Eosinophils% 0.8 % (0-5); Hemoglobin 10.8 g/dL (13.0-16.5); Lymphocyte # 2.67 X10^3/ul (0.83-4.51); Lymphocyte % 25.8 % (19-41); Mean Corp Hgb Conc 30.9 g/dL (32-36); Mean Corpuscular Hgb 29.3 pg (27.0-32.0); Mean Corpuscular Volume 95.1 fL (80-94); Mean Platelet Vol. 10.2 fl (6.2-12.0); Monocyte# 0.73 X10^3/uL; NRBC Flagged by Analyzer 0.2 % (0-5); Neutrophil # 6.63 X10^3/uL (2.7-7.7); Platelet Count 198 K/mm3 (150-450); RBC Distribution Width CV 14.4 % (11.6-14.6); RBC Distribution Width SD 50.1 fl (35.1-43.9); Red Blood Count 3.68 M/mm3 (4.6-6.2); White Blood Count 10.4 K/mm3 (4.4-11.0)
[2023-11-27] MEDS: 0.9% Normal Saline (1000mL) 1,000 ML 150 ML IV (22:00)
[2023-11-27 22:11] LABS: International Normalized Ratio 1.4; Prothrombin Time (Protime)PT. 17.2 SECONDS (11.7-14.9)
[2023-11-27 22:12] LABS: Partial Thromboplast Time 33.2 Seconds (24.1-36.2)
[2023-11-27 22:14] VITALS: O2SAT 93
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
[2023-11-27 22:18] LABS: AST(SGOT) 87 U/L (15-37); Alanine Aminotransfer ALT/SGPT 60 U/L (16-61); Albumin, Serum 2.9 g/dL (3.2-5.0); Alkaline Phosphatase 81 U/L (45-117); Anion Gap 6 (5-15); BUN 21 mg/dL (7-18); Calcium,Total 7.9 mg/dL (8.5-10.1); Chloride 109 mmol/L (98-107); EST Glomerular Filtration Rate 50 mL/min (>60); Est Glom Filt Rate - Afr Amer 60 mL/min (>60); Globulin 2.8 g/dL (2.2-4.2); Glucose 222 mg/dL (74-106); Potassium 5.3 mmol/L (3.5-5.1); Protein, Total 5.7 g/dL (6.4-8.2); Sodium Level 139 mmol/L (136-145)
--- NOTE | 2023-11-27 22:23 | ED.RN ---
Pt intubated at [address] Clark placing using 20mg Etomidate at 2132 and 100mg of Succinylcholine 2133
[2023-11-27 22:24] LABS: Alcohol, Blood (Medical)-Serum < 3.0 mg/dL
[2023-11-27 22:28] LABS: Bedside Glucose 178 mg/dL (74-106)
== END 2023-11-27 22:22 | disposition other institution (70) ==
PROVIDERS: Emergency Provider Emergency Medicine; PCP Family Medicine; Visit Provider Emergency Medicine
DX: S09.90XA Unspecified injury of head, initial encounter (principal); J43.9 Emphysema, unspecified; S22.42XA Multiple fractures of ribs, left side, initial encounter for closed fracture; Z87.891 Personal history of nicotine dependence; J93.9 Pneumothorax, unspecified; V29.99XA Rider (driver) (passenger) of other motorcycle injured in unspecified traffic accident, initial encounter; R40.4 Transient alteration of awareness
CPT/HCPCS: 31500; 32551; 36415; 51702; 71045; 72170; 80053; 82077; 82962; 85025; 85610; 85730; 93005; 99252; 99285; J7030; A4216; G0463